=== PATIENT | male | born 1955 | race Caucasian/White ===

== ENCOUNTER 2024-06-10 12:27 | Outpatient (CLI) | payer OTHER, SELFPAY ==
[2024-06-10] MEDS: PERFLUTREN LIPID MICROSPHERES 2 ML VIAL IVP (13:25)
--- NOTE | 2024-06-10 13:37 | PC.NURSE ---
20G IV placed in right hand. Definity given per geological technical officer instruction. IV removed intact once test completed.
== END 2024-06-10 12:28 | disposition home or self-care (01) ==
LOC: RAD 12:31
PROVIDERS: Visit Provider Chiropractor
DX: I48.91 Unspecified atrial fibrillation (principal); I35.0 Nonrheumatic aortic (valve) stenosis; I07.1 Rheumatic tricuspid insufficiency; I34.0 Nonrheumatic mitral (valve) insufficiency
CPT/HCPCS: 93306; Q9957